=== PATIENT | male | born 1960 | race Caucasian/White ===

== ENCOUNTER 2017-09-02 00:26 | Observation (INO) | payer OTHER ==
[~2017-09-02] VITALS: Ht 172.7 cm; Wt 81.6 kg
[~2017-09-02 00:26] MED LIST: AMIODARONE200 MG PO; ASPIRIN EC81 M1 PO; AUGMENTIN 875875 MG PO; BRILINTA60 MG PO; BRILINTA90 M1 PO; BRILINTA90 MG PO; CARVEDILOL6.25 M1 PO; CRESTOR10 M1 PO; CRESTOR20 M1 PO; CRESTOR20 M2 PO; CRESTOR20 MG PO; DOXYCYCLINE HY100 M4 PO; ENTRESTO 24 MG1 EACH PO; LISINOPRIL2.5 MG PO; MEDROL4 M2 PO; METOPROLOL SUCC50 M1 PO; MOBIC15 M1 PO; PRINIVIL 5MG5 MG PO; SPIRONOLACTONE25 M1 PO; TORSEMIDE20 M1 PO; VENTOLIN HFA18 GM INH; ZITHROMAX500 M2 PO
--- NOTE | 2017-09-02 00:58 | ED CARDIAC/CP/PALPITATIONS ---
History of Present Illness General Chief Complaint: Chest Pain Stated Complaint: PT C/C CHEST THIGHTNESS CARDIAC HX Source: patient Exam Limitations: no limitations Vital Signs & Intake/Output Vital Signs & Intake/Output Vital Signs Date Time Temp Pulse Resp B/P B/P Pulse O2 O2 Flow FiO2 Mean Ox Delivery Rate 09/02 0408 57 91/53 09/02 0317 59 18 94/58 94 Nasal 2.0L Cannula 09/02 0257 59 18 92/53 95 Nasal 2.0L Cannula 09/02 0247 57 18 87/50 95 Nasal 2.0L Cannula 09/02 0240 61 18 80/49 94 Nasal 2.0L Cannula 09/02 0226 61 18 82/51 94 Nasal 2.0L Cannula 09/02 0201 65 18 83/49 93 Nasal 2.0L Cannula 09/02 0149 63 18 85/53 90 Room Air 09/02 0129 66 92/54 09/02 0048 66 18 98/65 98 Room Air Allergies Coded Allergies: ceftriaxone (From [facility]) (N/V 09/02/17) Reconcile Medications Aspirin (Ecotrin*) 81 MG TABLET.DR 1 TAB PO DAILY HEART/BLOOD (Reported) Carvedilol 6.25 MG TABLET 1 TAB PO BID HEART/BP (Reported) Doxycycline Hyclate 100 MG TABLET 1 TAB PO BID CELLULITIS Meloxicam (Mobic) 15 MG TABLET 1 TAB PO DAILY PAIN Rosuvastatin Calcium (Crestor) 20 MG TABLET 1 TAB PO DAILY CHOLESTEROL ( Reported) Sacubitril/Valsartan (Entresto 24 MG-26 MG Tablet) 24 MG-26 MG TABLET 1 TAB PO BID HEART (Reported) Spironolactone 25 MG TABLET 1 TAB PO DAILY DIURETIC (Reported) Ticagrelor (Brilinta) 90 MG TABLET 1 TAB PO BID HEART (Reported) Torsemide 20 MG TABLET 1 TAB PO DAILY DIURETIC (Reported) Triage Note: TRIAGE: PATIENT TO ER FROM HOME REPORTING "CHEST TIGHTNESS X 2-3 HOURS, NOT PAIN, JUST TIGHT." PATIENT HX MULTIPLE DE W/ BYPASS/STENTS AND A DEFIBRILATOR PLACED 1 YEAR AGO. +SOB, NO COUGH. REPORTS HX CHF, "FEELS LIKE IN CHF RIGHT NOW." LUNGS CTA, NO ACUTE RESP DISTRESS. SPEECH CLEAR. EKG COMPLETED. REPORTS "I GET ANXIOUS ABOUT MY HEART." MD VASQUEZ EVALUATING PATIENT IN WHITING. Triage Nurses Notes Reviewed? yes Onset: Abrupt Duration: hour(s): Timing: recent history Location: central Radiation: right shoulder Activities at Onset: none Prior Chest Pain/Card Workup: heart attack Aspirin Today: 81 mg x 1, provided at home Associated Symptoms: dizziness HPI: 57 yo gentleman prior DE, cabg, pacer/defibrillator, presents with 3 hours of sub sternal chest "tightness", occasional radiation to right shoulder, and sensation of dizziness, "like I might pass out." He notes slight shortness of breath, no lower extremity edema, cough, phlegm, fever, chills. He is otherwise well. Past History Travel History Traveled to [place] past 21 day No Medical History Any Pertinent Medical History? see below for history Neurological: NONE EENT: NONE Cardiovascular: CHF, hyperlipidemia, [place] MULTIPLE Respiratory: pulmonary embolism, hypersensitivity pneumonitis Gastrointestinal: colonic polyps Hepatic: NONE Renal: NONE Musculoskeletal: NONE Psychiatric: depression Endocrine: NONE Blood Disorders: PE Cancer(s): NONE CREDIT ASSOCIATE/Reproductive: NONE History of MRSA: No History of VRE: No History of CDIFF: No Surgical History Surgical History: CABG Psychosocial History Who do you live with Daughter Services at Home None What is your primary language Malay Tobacco Use: Refused to answer Family History Hx Contributory? No Review of Systems Review of Systems Constitutional: Reports: no symptoms. EENTM: Reports: no symptoms. Respiratory: Reports: no symptoms. Cardiovascular: Reports: no symptoms. GI: Reports: no symptoms. Genitourinary: Reports: no symptoms. Musculoskeletal: Reports: no symptoms. Skin: Reports: no symptoms. Neurological/Psychological: Reports: no symptoms. Hematologic/Endocrine: Reports: no symptoms. Immunologic/Allergic: Reports: no symptoms. All Other Systems: Reviewed and Negative Physical Exam Physical Exam General Appearance: well developed/nourished, mild distress Head: atraumatic, normal appearance Eyes: Bilateral: normal appearance. Ears, Nose, Throat: normal pharynx, normal ENT inspection Neck: normal inspection, supple, full range of motion Respiratory: normal breath sounds, chest non-tender, no respiratory distress, quiet respiration, lungs clear Cardiovascular: regular rate/rhythm Gastrointestinal: normal bowel sounds, soft, non-tender, no organomegaly Back: normal inspection, normal range of motion Extremities: normal inspection, normal capillary refill, normal range of motion, no edema Neurologic/Psych: no motor/sensory deficits, awake, alert, oriented x 3 Skin: intact, normal color, warm/dry Core Measures ACS in differential dx? No CVA/TIA Diagnosis No Sepsis Present: No Sepsis Focused Exam Completed? No Progress Differential Diagnosis: AMI, musculoskeletal pain, pulmonary embolism, unstable angina Plan of Care: Orders Procedure Date/time Status Nothing by Mouth 09/02 B Active Saline Lock 09/[address] in observation 09/02 408 Active Misc Message 09/02 408 Active ED Holding Orders 09/02 408 Active Vital Signs 09/02 408 Active Code Status 09/02 408 Active Add-on Test (ER Only) 09/028 Active PROLACTIN 09/02 102 Active TROPONIN LEVEL 09/02 29 Active PARTIAL THROMBOPLASTIN TIME 09/02 29 Complete PROTHROMBIN TIME 09/02 29 Complete LIPASE 09/02 29 Active HEPATIC FUNCTION PANEL 09/02 29 Active D-DIMER 09/02 29 Complete CBC WITHOUT DIFFERENTIAL 09/02 29 Complete BASIC METABOLIC PANEL 09/02 29 Active AMYLASE 09/02 29 Active EKG 09/02 26 Active Laboratory Tests 09/02/173: Anion Gap 12, Estimated GFR > 60, BUN/Creatinine Ratio 15.6, Glucose 114 H, Calcium 8.8, Total Bilirubin 0.8, Direct Bilirubin 0.3, AST 19, ALT 37, Alkaline Phosphatase 68, Troponin I 0.02, Total Protein 5.8 L, Albumin 3.6, Amylase 41, Lipase 72, Prolactin Pending, PT 11.5, INR 1.10, APTT 30, D-Dimer High Sensitivty < 200, CBC w Diff NO MAN DIFF REQ, RBC 5.88, MCV 89.9, MCH 30.4, RDW 13.1, MPV 7.9, Gran % 73.1, Lymphocytes % 18.4 L, Monocytes % 6.5, Eosinophils % 1.6, Basophils % 0.4, Absolute Granulocytes 5.8, Absolute Lymphocytes 1.5, Absolute Monocytes 0.5, Absolute Eosinophils 0.1, Absolute Basophils 0, PUBS MCHC 33.8 Diagnostic Imaging: Viewed by Me: Radiology Read. Discussed w/RAD: Radiology Read. Radiology Impression: PATIENT: WILLIETY Paul JR PRESENT AGE: 57 PATIENT ACCOUNT NO: [id number] : 56 LOCATION: [facility] ORDERING PHYSICIAN: Ramsey Vasquez MD SERVICE DATE: 09/02/17 EXAM TYPE: CAT - CT CERV SPINE WO IV CONTRAST; CT HEAD WO IV CONTRAST; CT MAXILLOFACIAL W/O CON EXAMINATION: NONCONTRAST HEAD CT NONCONTRAST MAXILLOFACIAL CT NONCONTRAST CERVICAL SPINE CT INDICATION INFORMATION: Head injury. Fall. Seizure. COMPARISON: None TECHNIQUE: Separate noncontrast CT examinations of the head, maxillofacial bones, and cervical spine were performed. Coronal and sagittal images were created for each examination at the technologist workstation. DLP: 1924 mGy-cm FINDINGS: Head: No evidence of acute intracranial hemorrhage. No extra-axial fluid collections are seen. Jimenez-white differentiation is maintained without evidence of acute territorial infarction. Ventricles are of normal size without evidence of hydrocephalus. No mass effect or midline shift. Mild periventricular and deep white matter hypoattenuation is consistent with small vessel ischemic change. The mastoid air cells are well aerated. No acute calvarial fractures are seen. Maxillofacial: No acute maxillofacial fractures are seen. The pterygoid plates are intact. The lamina papyracea are intact. The zygomatic arches are intact. The orbital rims are intact. Minimal opacification of the left maxillary sinus. The remaining paranasal sinuses are well aerated. The uncinate process is normal bilaterally. The infundibula and middle meati are patent. The nasal septum is mildly deviated to the left. The mandibular heads are well-seated in the condylar fossa. The orbits demonstrate a normal appearance bilaterally. The globes are intact, and there are no suspicious findings to suggest retrobulbar hemorrhage. Cervical spine: There is anterior cervical fusion hardware at C5-C6 with bony fusion of the vertebral bodies. There is anatomic alignment of the vertebral bodies and posterior elements. Vertebral body heights are maintained. There is disc space narrowing throughout the cervical spine with endplate osteophyte formation and facet arthropathy. The atlantoaxial and atlantooccipital articulations are intact. No evidence of acute fracture. No prevertebral soft tissue swelling. Groundglass opacities at the lung apices noted. The thyroid gland is unremarkable. IMPRESSION: 1. No acute intracranial findings. 2. No acute fracture or malalignment involving the cervical spine or maxillofacial bones. Degenerative changes of the spine. DICTATED BY: Ascencion Montes MD DATE/TIME DICTATED:09/02/17236 RESIDENTIAL TREATMENT COUNSELOR:CYNDI DATE/TIME TRANSCRIBED:236 CONFIDENTIAL, DO NOT COPY WITHOUT APPROPRIATE AUTHORIZATION. < Electronically signed in Other Vendor System> SIGNED BY: Ascencion Montes MD 09/02/17 0245 CXR Impression: PATIENT: TY TAPIA JR PRESENT AGE : 57 PATIENT ACCOUNT NO: [id number] : 56 LOCATION: [facility] ORDERING PHYSICIAN: Ramsey Vasquez MD SERVICE DATE: 09/02/17 EXAM TYPE: RAD - XRY-PORTABLE CHEST XRAY EXAMINATION: XR PORTABLE CHEST CLINICAL INFORMATION: Chest pain COMPARISON: 07/20/2017 TECHNIQUE: Portable frontal view of the chest was obtained. FINDINGS: Cervical fusion hardware partially visualized. Median sternotomy wires appear intact. Generator overlies the left chest wall with wiring overlying the left paraspinal region. The lungs are well expanded. There is no focal consolidation, edema, or effusion. No pneumothorax. The cardiomediastinal silhouette is unchanged. No acute osseous abnormality. IMPRESSION: No acute pulmonary findings. DICTATED BY: Ascencion Montes MD DATE /TIME DICTATED:09/02/17235 RESIDENTIAL TREATMENT COUNSELOR:CYNDI DATE/TIME TRANSCRIBED: 09/02/17235 CONFIDENTIAL, DO NOT COPY WITHOUT APPROPRIATE AUTHORIZATION. < Electronically signed in Other Vendor System> SIGNED BY: Ascencion Montes MD 09/02/17 0241 Initial ED EKG: LBBB, no change from prior Departure Departure Disposition: STILL A PATIENT Condition: Stable Clinical Impression Primary Impression: Unstable angina Secondary Impressions: Seizure Referrals: Dimas Severino MD (PCP/Family) Departure Forms: Customer Survey General Discharge Information Comments 09/02/17, 1:35AM... Pt had seizure-like episode, lasted <1 minute, +loss of consciousness, w/ loss of bladder. Pt hit head on bridge of nose, +nose bleed. pt confused afterward but easily aroused. 09/02/17, 1:52am... pt is chest pain free... sbp<90... IV fluids running Observation Note Spoke With: Dimas Severino MD Physician Advisor Notified: SHANEL MACK DO Place Patient In: Non-ED OBS Care Area Rationale for Observation: My rational for observation is as follows . pt had chest pain, responsive to nitro, most consistent with unstable angina. pt also had brief seizure episode, self resolved, with negative ct scans.... ? nitro related, ?dysrhythmia.... pt merits telemonitoring, serial trops/ekg. Discussed with tesfaye rodas (covering for sundeep mendoza) who concurs. Cards will consult this AM. Would consider neuro consult as well. Critical Care Note Critical Care Note Critical Care Time: 30-74 min
[2017-09-02 01:19] LABS: ABSOLUTE BASOPHIL COUNT 0 /CUMM (0.0-0.2); ABSOLUTE EOSINOPHIL COUNT 0.1 /CUMM (0.0-0.7); ABSOLUTE GRANULOCYTE CT 5.8 /CUMM (1.4-6.5); ABSOLUTE LYMPH COUNT 1.5 /CUMM (1.2-3.4); ABSOLUTE MONOCYTE COUNT 0.5 /CUMM (0.10-0.60); BASOPHIL % 0.4 % (0.0-2.0); EOSINOPHIL % 1.6 % (0-5); GRANULOCYTE % 73.1 % (42.2-75.2); HEMATOCRIT 52.9 % (42-52); MEAN CORPUSCULAR HGB 30.4 PG (27.0-31.0); MEAN CORPUSCULAR HGB CONC 33.8 G/DL (33.0-37.0); MEAN CORPUSCULAR VOLUME 89.9 FL (80.0-94.0); MEAN PLATELET VOLUME 7.9 FL (7.4-10.4); PLATELET COUNT 186 /CUMM (130-400); RBC DISTRIBUTION WIDTH 13.1 % (11.5-14.5); RED BLOOD CELL CT 5.88 /CUMM (4.70-6.10); WHITE BLOOD CELL COUNT 7.9 /CUMM (4.8-10.8)
[2017-09-02 01:22] LABS: PT 11.5 SEC (9.4-12.5); PTT 30 SEC (25-37)
--- NOTE | 2017-09-02 02:41 | RADIOLOGY REPORT ---
EXAMINATION: XR PORTABLE CHEST CLINICAL INFORMATION: Chest pain COMPARISON: 07/20/2017 TECHNIQUE: Portable frontal view of the chest was obtained. FINDINGS: Cervical fusion hardware partially visualized. Median sternotomy wires appear intact. Generator overlies the left chest wall with wiring overlying the left paraspinal region. The lungs are well expanded. There is no focal consolidation, edema, or effusion. No pneumothorax. The cardiomediastinal silhouette is unchanged. No acute osseous abnormality. IMPRESSION: No acute pulmonary findings.
--- NOTE | 2017-09-02 02:45 | CT SCAN REPORT ---
EXAMINATION: NONCONTRAST HEAD CT NONCONTRAST MAXILLOFACIAL CT NONCONTRAST CERVICAL SPINE CT INDICATION INFORMATION: Head injury. Fall. Seizure. COMPARISON: None TECHNIQUE: Separate noncontrast CT examinations of the head, maxillofacial bones, and cervical spine were performed. Coronal and sagittal images were created for each examination at the technologist workstation. DLP: 1924 mGy-cm FINDINGS: Head: No evidence of acute intracranial hemorrhage. No extra-axial fluid collections are seen. Jimenez-white differentiation is maintained without evidence of acute territorial infarction. Ventricles are of normal size without evidence of hydrocephalus. No mass effect or midline shift. Mild periventricular and deep white matter hypoattenuation is consistent with small vessel ischemic change. The mastoid air cells are well aerated. No acute calvarial fractures are seen. Maxillofacial: No acute maxillofacial fractures are seen. The pterygoid plates are intact. The lamina papyracea are intact. The zygomatic arches are intact. The orbital rims are intact. Minimal opacification of the left maxillary sinus. The remaining paranasal sinuses are well aerated. The uncinate process is normal bilaterally. The infundibula and middle meati are patent. The nasal septum is mildly deviated to the left. The mandibular heads are well-seated in the condylar fossa. The orbits demonstrate a normal appearance bilaterally. The globes are intact, and there are no suspicious findings to suggest retrobulbar hemorrhage. Cervical spine: There is anterior cervical fusion hardware at C5-C6 with bony fusion of the vertebral bodies. There is anatomic alignment of the vertebral bodies and posterior elements. Vertebral body heights are maintained. There is disc space narrowing throughout the cervical spine with endplate osteophyte formation and facet arthropathy. The atlantoaxial and atlantooccipital articulations are intact. No evidence of acute fracture. No prevertebral soft tissue swelling. Groundglass opacities at the lung apices noted. The thyroid gland is unremarkable. IMPRESSION: 1. No acute intracranial findings. 2. No acute fracture or malalignment involving the cervical spine or maxillofacial bones. Degenerative changes of the spine.
--- NOTE | 2017-09-02 06:00 | History & Physical ---
General Information and HPI Allergies/Medications Allergies: Coded Allergies: ceftriaxone (From [facility]) (N/V 09/02/17) Home Med list Aspirin (Ecotrin*) 81 MG TABLET.DR 1 TAB PO DAILY HEART/BLOOD (Reported) Carvedilol 6.25 MG TABLET 1 TAB PO BID HEART/BP (Reported) Doxycycline Hyclate 100 MG TABLET 1 TAB PO BID CELLULITIS Meloxicam (Mobic) 15 MG TABLET 1 TAB PO DAILY PAIN Rosuvastatin Calcium (Crestor) 20 MG TABLET 1 TAB PO DAILY CHOLESTEROL ( Reported) Sacubitril/Valsartan (Entresto 24 MG-26 MG Tablet) 24 MG-26 MG TABLET 1 TAB PO BID HEART (Reported) Spironolactone 25 MG TABLET 1 TAB PO DAILY DIURETIC (Reported) Ticagrelor (Brilinta) 90 MG TABLET 1 TAB PO BID HEART (Reported) Torsemide 20 MG TABLET 1 TAB PO DAILY DIURETIC (Reported) Past History Travel History Traveled to [place] past 21 day No Medical History Neurological: NONE EENT: NONE Cardiovascular: CHF, hyperlipidemia, [place] MULTIPLE Respiratory: pulmonary embolism, hypersensitivity pneumonitis Gastrointestinal: colonic polyps Hepatic: NONE Renal: NONE Musculoskeletal: NONE Psychiatric: depression Endocrine: NONE Blood Disorders: PE Cancer(s): NONE 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 Core Measures/Misc (05/03) Cerebrovascular Accident CVA/TIA Diagnosis: No
[2017-09-02 07:05] VITALS: BP 96/58
--- NOTE | 2017-09-02 07:27 | History & Physical ---
General Information and HPI MD Statement: I have seen and personally examined TY TAPIA and documented this H&P. The patient is a 57 year old M who presented with a patient stated chief complaint of chest tightness. Source of Information: patient, family Exam Limitations: no limitations History of Present Illness: This is a very pleasant 57-year-old gentleman with an extensive cardiac past medical history of 2 MIs (first one 8 years ago), status post LAD bare metal stent placement and CABG (last one in May 2016), Ischemic cardiomyopathy withh depresed EF s/p AICD placement, provoked pe 5yrs ago, presents with complaint of 3hour onset of chest tightness. Patient reports that yesterday during evening time while seated and watching TV, he experienced substernal chest tightness accompanied by mild shortness of breath. He denies any chest pain, radiation to jaw arms, palpitation or diaphoresis. He reports that his head similar episodes before about 1-1/2 year ago which resulted in an WA. Patient then decided to drive himself to the ED for evaluation. Patient denies any cough, fever/chills, recent URI, chest trauma or illicit drug use. ED reports indicated that he did receive nitroglycerin in addition to aspirin, which patient reports gave him relief from his chest tightness. When seen today early in the morning,he was chest pain free. 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 His last echo was about 1 year ago which weas remarkable for significanty depressed EF (pt does not remember the number). Only he does not endorse any recent weight gain, increased orthopnea, or worsening dyspnea, he is on spirinolactone and torsemide on a daily basis. Overnight event reported by the ED staff reports that patient had a syncopal episode of about 30 seconds. A thud was heard by nursing staff who immediateltwalked into the room and found the patient on the flow with loss of consciousness and possible urinary incontinence. Patient regained consciousness within 30 seconds, there was no tremors noted, however there was reported mild post ictal confusion. Patient reports that he try to get up and felt dizzy and then the next thing he remembers he was on the floor. Allergies/Medications Allergies: Coded Allergies: ceftriaxone (From [facility]) (N/V 09/02/17) Home Med list Aspirin (Ecotrin*) 81 MG TABLET.DR 1 TAB PO DAILY HEART/BLOOD (Reported) Carvedilol 6.25 MG TABLET 1 TAB PO BID HEART/BP (Reported) Doxycycline Hyclate 100 MG TABLET 1 TAB PO BID CELLULITIS Meloxicam (Mobic) 15 MG TABLET 1 TAB PO DAILY PAIN Rosuvastatin Calcium (Crestor) 20 MG TABLET 1 TAB PO DAILY CHOLESTEROL ( Reported) Sacubitril/Valsartan (Entresto 24 MG-26 MG Tablet) 24 MG-26 MG TABLET 1 TAB PO BID HEART (Reported) Spironolactone 25 MG TABLET 1 TAB PO DAILY DIURETIC (Reported) Ticagrelor (Brilinta) 90 MG TABLET 1 TAB PO BID HEART (Reported) Torsemide 20 MG TABLET 1 TAB PO DAILY DIURETIC (Reported) Past History Travel History Traveled to [place] past 21 day No Medical History Neurological: NONE EENT: NONE Cardiovascular: CHF, hyperlipidemia, [place] MULTIPLE Respiratory: pulmonary embolism, hypersensitivity pneumonitis Gastrointestinal: colonic polyps Hepatic: NONE Renal: NONE Musculoskeletal: NONE Psychiatric: depression Endocrine: NONE Blood Disorders: PE Cancer(s): NONE 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 Review of Systems Review of Systems Constitutional: Denies: chills, diaphoresis, unexplained weight loss. EENTM: Reports: no symptoms. Cardiovascular: Reports: see HPI. Respiratory: Reports: short of breath. GI: Reports: no symptoms. Genitourinary: Reports: see HPI. Musculoskeletal: Denies: back pain, gout, joint pain, muscle pain. Skin: Reports: no symptoms. Neurological/Psychological: Reports: no symptoms. Hematologic/Endocrine: Reports: no symptoms. Immunologic/Allergic: Reports: no symptoms. Exam & Diagnostic Data Last 24 Hrs of Vital Signs/I&O Vital Signs Date Time Temp Pulse Resp B/P B/P Pulse O2 O2 Flow FiO2 Mean Ox Delivery Rate 09/02 0917 68 98/58 09/02 0705 97.5 63 18 96/58 95 09/02 0630 Nasal 2.0L Cannula 09/02 0551 95.6 75 20 91/50 97 Nasal 2.0L Cannula 09/02 0428 67 18 92/54 95 Nasal 2.0L Cannula 09/02 0408 57 91/53 09/02 0400 95 Nasal 2.0L Cannula 09/02 0317 59 18 94/58 94 Nasal 2.0L Cannula 09/02 0257 59 18 92/53 95 Nasal 2.0L Cannula 09/02 0247 57 18 87/50 95 Nasal 2.0L Cannula 09/02 0240 61 18 80/49 94 Nasal 2.0L Cannula 09/02 0226 61 18 82/51 94 Nasal 2.0L Cannula 09/02 0201 65 18 83/49 93 Nasal 2.0L Cannula 09/02 0149 63 18 85/53 90 Room Air 09/02 0129 66 92/54 09/02 0048 66 18 98/65 98 Room Air Intake & Output 09/02 1600 09/02 0800 09/02 0000 Intake Total 2000 Output Total Balance 2000 Intake, IV 2000 Patient 81.647 kg Weight Weight Reported by Patient Measurement Method Physical Exam General Appearance Alert, Oriented X3, Cooperative Skin midline incission scar on chest noted.intact sterile strips noted on nasal areas from mild skin tears Skin Temp/Moisture Exam: Warm/Dry Sepsis Skin Exam (color): Normal for Ethnicity HEENT Mucous Membr. moist/pink, facial mikld skin tears noted Neck Supple, No JVD Lymphatic Cervical nl Cardiovascular Regular Rate, Normal S1, Normal S2, No Murmurs Lungs Clear to Auscultation, Normal Air Movement Abdomen Normal Bowel Sounds, Soft, No Tenderness Neurological Normal Gait, Normal Speech, Strength at 5/5 X4 Ext, Normal Tone, Sensation Intact, Cranial Nerves 3-12 NL, Reflexes 2+ Extremities No Edema, Normal Pulses, No Tenderness/Swelling Vascular Normal Pulses, Pulses Symmetrical Assessment/Plan Assessment: This is a 57-year-old gentleman with signficant CAD hx of 2 MIs requiring stent placement and CABG present with atypical chest pain. Impression * Chest tightness. The acute onset of chest discomfort at rest and possible relief by nitroglycerin, is concerning for unstable angina or stent stenosis, especially in the context of high risk patient with previous MIs and stent placement. However his trended troponins are negative 2, even though does however have diffuse T-wave inversion in inferior and anterolateral leads which is not an uncommon in patients with Multi vessel disease. The lack of chest pain or radiating features or diaphoresis, negative trops is more convincing of "atypical chest pain" rather than typical anginal pain. Anxiety can be considered as possible cause as patient is endorsing a not yet diagnosed hx of possible anxiety or panic attack (?). * Syncope. Most likely 2/2 the NTG given patuient felt dizziness when changing from a laying to a standing position right before syncopizing. * Possible seizure activity? Mild Postictal confusion and urinary incontinence is concerning for possible seizure activity. However there was no tremor/seizure activity notes. Given the patient account of feeling dizzy when attempting to stand up and having been given NTG prior to the episode, most likely patient had a syncopal episode from a medication effect rather than actual seizure activity. * Hx of CAD * Hx of Ischemic cardiomyopathy Plan Placed on Tele observation for close cardiac monitoring Keep nothing by mouth for now Initial troponins x2 unremarkable, repeated one more time Continue DAPT, carvedilol and enteresto Cardiology consult interrogation of AICD consider Neuro consult? Patient will benefit from outpatient pharmacological stresss test DVT PPX: ALPS and code:FC As Ranked By This Provider Problem List: 1. Chest tightness 2. Syncopal episodes Core Measures/Misc (05/03) Acute Coronary Syndrome ACS Diagnosis: No Congestive Heart Failure Congestive Heart Failure Diagnosis No Cerebrovascular Accident CVA/TIA Diagnosis: No VTE (View Protocol) VTE Risk Factors Acute Medical Illness No Mechanical VTE Prophylaxis d/t N/A MechProphylax Ordered No VTE Pharm Prophylaxis d/t NA PharmProphylax ordered Sepsis (View protocol) Sepsis Present: No
--- NOTE | 2017-09-02 12:59 | PN- Att Addend ---
Attending Addendum Attending Brief Note 57-year-old white male with a positive cardiac history follows closely with cardiology. Comes in because he had some chest tightness. No shortness of breath no diaphoresis noted in the ER at the beginning of workup, might have had a presyncopal or syncopal episode patient had an unwitnessed fall and he scratched his nose. Patient had a CAT scan of the head in the cervical spine which showed no acute abnormalities. His troponin so far have been negative patient was kept in observation with Dr. Acevedo to evaluate the patient. Current Medications Sig/Andrew Start time Last Medication Dose Route Stop Time Status Admin Aspirin 0 .STK-MED ONE 09/02 0112 DC PO Aspirin 325 MG ONCE ONE 09/02 0100 DC 09/02 PO 09/02 0101 0110 Aspirin Buffered 81 MG DAILY 09/02 1000 AC 09/02 PO 0916 Atorvastatin Calcium 80 MG 1700 09/02 1700 AC PO Carvedilol 6.25 MG BID 09/02 1000 AC 09/02 PO 0917 Enoxaparin Sodium 40 MG DAILY 09/02 1000 AC SC Lorazepam 0 .STK-MED ONE 09/02 0136 DC .ROUTE Lorazepam 1 MG STAT STA 09/02 0134 DC 09/02 IV 09/02 0135 0138 Nitroglycerin 0 .STK-MED ONE 09/02 0112 DC SL Nitroglycerin 0.4 MG ONCE ONE 09/02 0100 DC 09/02 SL 09/02 0101 0110 Sacubitril/Valsartan 1 TAB BID 09/02 1100 AC PO Sodium Chloride 1,000 ML BOLUS ONE 09/02 0230 DC 09/02 IV 09/02 0329 0243 Sodium Chloride 1,000 ML BOLUS ONE 09/02 0200 DC 09/02 IV 09/02 0259 0135 Ticagrelor 90 MG BID 09/02 1000 AC 09/02 PO 0917 Laboratory Tests 09/02/17 1244: Troponin I Pending 09/02/17 0604: Troponin I 0.02 09/02/17 0103: Anion Gap 12, Estimated GFR > 60, BUN/Creatinine Ratio 15.6, Glucose 114 H, Calcium 8.8, Total Bilirubin 0.8, Direct Bilirubin 0.3, AST 19, ALT 37, Alkaline Phosphatase 68, Troponin I 0.02, Lgc-Q-Wkeiebcabes Pept 442 H, Total Protein 5.8 L, Albumin 3.6, Amylase 41, Lipase 72, Prolactin 12.8, PT 11.5, INR 1.10, APTT 30, D-Dimer High Sensitivty < 200, CBC w Diff NO MAN DIFF REQ, RBC 5.88, MCV 89.9, MCH 30.4, RDW 13.1, MPV 7.9, Gran % 73.1, Lymphocytes % 18.4 L, Monocytes % 6.5, Eosinophils % 1.6, Basophils % 0.4, Absolute Granulocytes 5.8, Absolute Lymphocytes 1.5, Absolute Monocytes 0.5, Absolute Eosinophils 0.1, Absolute Basophils 0, PUBS MCHC 33.8 Vital Signs Date Time Temp Pulse Resp B/P B/P Pulse O2 O2 Flow FiO2 Mean Ox Delivery Rate 09/02 0917 68 98/58 09/02 0705 97.5 63 18 96/58 95 09/02 0630 Nasal 2.0L Cannula 09/02 0551 95.6 75 20 91/50 97 Nasal 2.0L Cannula
[2017-09-02 14:29] VITALS: BP 90/60
--- NOTE | 2017-09-02 15:33 | Cons- Cardiology ---
General Information and HPI Consulting Request Date of Consult: 09/02/17 Requested By: Dimas Severino MD Reason for Consult: Chest pain ; syncope Source of Information: patient, old records Exam Limitations: no limitations History of Present Illness: The patient is a 57 year old male well known to me with a history of ischemic cardiomyopathy, CABG, AICD, who is followed at [place] [facility] [place] [facility]F centers. He is usually quite stable and very active. He is admitted via the ER after symptoms of atypical chest tightness and dyspnea. Ultimately received TNG SL and subsequently had a syncopal episode when rising from the stretcher in the ER. THEre were no reported arrhythmias. Patient feels fine at present. Allergies/Medications Allergies: Coded Allergies: ceftriaxone (From ROCEPHIN) (N/V 09/02/17) Home Med List: Aspirin (Ecotrin*) 81 MG TABLET.DR 1 TAB PO DAILY HEART/BLOOD (Reported) Carvedilol 6.25 MG TABLET 1 TAB PO BID HEART/BP (Reported) Doxycycline Hyclate 100 MG TABLET 1 TAB PO BID CELLULITIS Meloxicam (Mobic) 15 MG TABLET 1 TAB PO DAILY PAIN Rosuvastatin Calcium (Crestor) 20 MG TABLET 1 TAB PO DAILY CHOLESTEROL ( Reported) Sacubitril/Valsartan (Entresto 24 MG-26 MG Tablet) 24 MG-26 MG TABLET 1 TAB PO BID HEART (Reported) Spironolactone 25 MG TABLET 1 TAB PO DAILY DIURETIC (Reported) Ticagrelor (Brilinta) 90 MG TABLET 1 TAB PO BID HEART (Reported) Torsemide 20 MG TABLET 1 TAB PO DAILY DIURETIC (Reported) Current Medications: Current Medications Sig/Andrew Start time Last Medication Dose Route Stop Time Status Admin Aspirin 0 .STK-MED ONE 09/02 0112 DC PO Aspirin 325 MG ONCE ONE 09/02 0100 DC 09/02 PO 09/02 0101 0110 Aspirin Buffered 81 MG DAILY 09/02 1000 AC 09/02 PO 0916 Atorvastatin Calcium 80 MG 1700 09/02 1700 AC PO Carvedilol 6.25 MG BID 09/02 1000 AC 09/02 PO 0917 Enoxaparin Sodium 40 MG DAILY 09/02 1000 AC 09/02 SC 1329 Lorazepam 0 .STK-MED ONE 09/02 0136 DC .ROUTE Lorazepam 1 MG STAT STA 09/02 0134 DC 09/02 IV 09/02 0135 0138 Nitroglycerin 0 .STK-MED ONE 09/02 0112 DC SL Nitroglycerin 0.4 MG ONCE ONE 09/02 0100 DC 09/02 SL 09/02 0101 0110 Sacubitril/Valsartan 1 TAB BID 09/02 1100 AC 09/02 PO 1329 Sodium Chloride 1,000 ML BOLUS ONE 09/02 0230 DC 09/02 IV 09/02 0329 0243 Sodium Chloride 1,000 ML BOLUS ONE 09/02 0200 DC 09/02 IV 09/02 0259 0135 Ticagrelor 90 MG BID 09/02 1000 AC 09/02 PO 0917 Past History Travel History Traveled to [place] past 21 day No Medical History Neurological: NONE EENT: NONE Cardiovascular: CHF, hyperlipidemia, [place] MULTIPLE Respiratory: pulmonary embolism, hypersensitivity pneumonitis Gastrointestinal: colonic polyps Hepatic: NONE Renal: NONE Musculoskeletal: NONE Psychiatric: depression Endocrine: NONE Blood Disorders: PE Cancer(s): NONE 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 Exam & Diagnostic Data Vital Signs and I&O Vital Signs Date Time Temp Pulse Resp B/P B/P Pulse O2 O2 Flow FiO2 Mean Ox Delivery Rate 09/02 1429 98.0 64 20 90/60 94 Room Air 09/02 0917 68 98/58 09/02 0705 97.5 63 18 96/58 95 09/02 0630 Nasal 2.0L Cannula 09/02 0551 95.6 75 20 91/50 97 Nasal 2.0L Cannula 09/02 0428 67 18 92/54 95 Nasal 2.0L Cannula 09/02 0408 57 91/53 09/02 0400 95 Nasal 2.0L Cannula 09/02 0317 59 18 94/58 94 Nasal 2.0L Cannula 09/02 0257 59 18 92/53 95 Nasal 2.0L Cannula 09/02 0247 57 18 87/50 95 Nasal 2.0L Cannula 09/02 0240 61 18 80/49 94 Nasal 2.0L Cannula 09/02 0226 61 18 82/51 94 Nasal 2.0L Cannula 09/02 0201 65 18 83/49 93 Nasal 2.0L Cannula 09/02 0149 63 18 85/53 90 Room Air 09/02 0129 66 92/54 09/02 0048 66 18 98/65 98 Room Air Intake & Output 09/02 1600 09/02 0800 09/02 0000 09/01 1600 09/01 0800 09/01 0000 Intake Total 520 2000 Output Total 400 Balance 120 2000 Intake, IV 20 2000 Intake, Oral 500 Number 1 Bowel Movements Output, Urine 400 Patient 180 lb Weight Weight Reported by Patient Measurement Method Physical Exam: General Appearance Alert, Oriented X3, Cooperative Skin midline incission scar on chest noted.intact sterile strips noted on nasal areas from mild skin tears HEENT Mucous Membr. moist/pink, facial mikld skin tears noted Neck Supple, No JVD Cardiovascular Regular Rate, Normal S1, Normal S2, No Murmurs Lungs Clear to Auscultation, Normal Air Movement Abdomen Normal Bowel Sounds, Soft, No Tenderness Neurological Normal Gait, Normal Speech, Strength at 5/5 X4 Ext, Normal Tone, Sensation Intact, Cranial Nerves 3-12 NL, Reflexes 2+ Extremities No Edema, Normal Pulses, No Tenderness/Swelling Vascular Normal Pulses, Pulses Symmetrical Labs/Marcel Results: Laboratory Tests 09/02 09/02 09/02 1244 0604 0103 Chemistry Sodium (137 - 145 mmol/L) 139 Potassium (3.5 - 5.1 mmol/L) 4.0 Chloride (98 - 107 mmol/L) 102 Carbon Dioxide (22 - 30 mmol/L) 24 Anion Gap (5 - 16) 12 BUN (9 - 20 mg/dL) 14 Creatinine (0.7 - 1.2 mg/dL) 0.9 Estimated GFR (>60 ml/min) > 60 BUN/Creatinine Ratio (7 - 25 %) 15.6 Glucose (65 - 99 mg/dL) 114 H Calcium (8.4 - 10.2 mg/dL) 8.8 Total Bilirubin (0.2 - 1.3 mg/dL) 0.8 Direct Bilirubin (< 0.4 mg/dL) 0.3 AST (17 - 59 U/L) 19 ALT (21 - 72 U/L) 37 Alkaline Phosphatase (< 127 U/L) 68 Troponin I (<0.11 ng/ml) < 0.01 0.02 0.02 Agh-C-Jmxmbngojgr Pept (<125 pg/mL) 442 H Total Protein (6.3 - 8.2 g/dL) 5.8 L Albumin (3.5 - 5.0 g/dL) 3.6 Amylase (30 - 110 U/L) 41 Lipase (23 - 300 U/L) 72 Prolactin (3.7 - 17.9 ng/mL) 12.8 Coagulation PT (9.4 - 12.5 SEC) 11.5 INR (0.90 - 1.17) 1.10 APTT (25 - 37 SEC) 30 D-Dimer High Sensitivty (0 - 243 ng/ml) < 200 Hematology CBC w Diff NO MAN DIFF REQ WBC (4.8 - 10.8 /CUMM) 7.9 RBC (4.70 - 6.10 /CUMM) 5.88 Hgb (14.0 - 18.0 G/DL) 17.9 Hct (42 - 52 %) 52.9 H MCV (80.0 - 94.0 FL) 89.9 MCH (27.0 - 31.0 PG) 30.4 RDW (11.5 - 14.5 %) 13.1 Plt Count (130 - 400 /CUMM) 186 MPV (7.4 - 10.4 FL) 7.9 Gran % (42.2 - 75.2 %) 73.1 Lymphocytes % (20.5 - 51.1 %) 18.4 L Monocytes % (1.7 - 9.3 %) 6.5 Eosinophils % (0 - 5 %) 1.6 Basophils % (0.0 - 2.0 %) 0.4 Absolute Granulocytes (1.4 - 6.5 /CUMM) 5.8 Absolute Lymphocytes (1.2 - 3.4 /CUMM) 1.5 Absolute Monocytes (0.10 - 0.60 /CUMM) 0.5 Absolute Eosinophils (0.0 - 0.7 /CUMM) 0.1 Absolute Basophils (0.0 - 0.2 /CUMM) 0 PUBS MCHC (33.0 - 37.0 G/DL) 33.8 Diagnostic Data CXR Results FINDINGS: Cervical fusion hardware partially visualized. Median sternotomy wires appear intact. Generator overlies the left chest wall with wiring overlying the left paraspinal region. The lungs are well expanded. There is no focal consolidation, edema, or effusion. No pneumothorax. The cardiomediastinal silhouette is unchanged. No acute osseous abnormality. IMPRESSION: No acute pulmonary findings. Assessment/Plan Assessment/Plan Assessment: 1. Chest pain syndrome 2. Syncope 3. History of CAD with ischemic cardiomyopathy 4. AICD Recommendations: - Monitor on telemetry - AICD interrogation arranged with Dr. Bailey - Echo pending. - Continue all regular medication including entresto. Consult Acknowledgment - Thank you for your consult request.
[2017-09-02 22:15] VITALS: BP 82/58
[2017-09-03 06:22] VITALS: BP 88/64
--- NOTE | 2017-09-03 06:54 | Cons- Neurology ---
General Information and HPI Consulting Request Date of Consult: 09/03/17 Requested By: Dimas Severino MD Reason for Consult: seizure? Source of Information: patient, EMR History of Present Illness: 57-year-old man with ischemic and possibly viral cardiomyopathy, last EF 18% according to him, followed at [facility], on heart transplant list, states he drove himself to the ED yesterday because of chest pain. While he was in the ED and after receiving nitroglycerin, he stood up and subsequently passed out, landed face first. He reportedly regained consciousness within 30 seconds. He does not recall that epoch of time but has otherwise felt well. There is no mention of convulsive activity in the records. There was no tongue biting or incontinence. There is no prior history of syncope or seizure. Baseline blood pressures tend to run low. He currently feels well. No chest pain or shortness of breath. No headache or dizziness. No visual changes. No gait difficulties. No family history of neurologic disease His younger brother had a myocardial infarct in the past Allergies/Medications Allergies: Coded Allergies: ceftriaxone (From ROCEPHIN) (N/V 09/02/17) Home Med List: Aspirin (Ecotrin*) 81 MG TABLET.DR 1 TAB PO DAILY HEART/BLOOD (Reported) Carvedilol 6.25 MG TABLET 1 TAB PO BID HEART/BP (Reported) Doxycycline Hyclate 100 MG TABLET 1 TAB PO BID CELLULITIS Meloxicam (Mobic) 15 MG TABLET 1 TAB PO DAILY PAIN Rosuvastatin Calcium (Crestor) 20 MG TABLET 1 TAB PO DAILY CHOLESTEROL ( Reported) Sacubitril/Valsartan (Entresto 24 MG-26 MG Tablet) 24 MG-26 MG TABLET 1 TAB PO BID HEART (Reported) Spironolactone 25 MG TABLET 1 TAB PO DAILY DIURETIC (Reported) Ticagrelor (Brilinta) 90 MG TABLET 1 TAB PO BID HEART (Reported) Torsemide 20 MG TABLET 1 TAB PO DAILY DIURETIC (Reported) Current Medications: Current Medications Sig/Andrew Start time Last Medication Dose Route Stop Time Status Admin Aspirin Buffered 81 MG DAILY 09/02 1000 AC 09/02 PO 0916 Atorvastatin Calcium 80 MG 1700 09/02 1700 AC PO Carvedilol 6.25 MG BID 09/02 1000 AC 09/02 PO 09 Enoxaparin Sodium 40 MG DAILY 09/02 1000 AC 09/02 [place] 1329 Sacubitril/Valsartan 1 TAB BID 09/02 1100 AC 09/02 PO 2022 Ticagrelor 90 MG BID 09/02 1000 AC 09/02 PO 2022 Review of Systems Review of Systems: REVIEW OF SYSTEMS: (-) = negative / normal blank = not discussed Neurologic: see HPI Eyes: (-) ENT: Nasal abrasion/contusion due to the syncopal episode with fall. 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 Exam & Diagnostic Data Vital Signs and I&O Vital Signs Date Time Temp Pulse Resp B/P B/P Pulse O2 O2 Flow FiO2 Mean Ox Delivery Rate 09/03 0622 98.3 66 20 88/64 95 Room Air 09/02 2215 98.4 85 20 82/58 94 Room Air 09/02 2040 81 84/60 09/02 1429 98.0 64 20 90/60 94 Room Air 09/02 0917 68 98/58 09/02 0705 97.5 63 18 96/58 95 Intake & Output 09/03 0800 09/03 0000 09/02 1600 Intake Total 360 360 520 Output Total 400 Balance 360 360 120 Intake, IV 20 Intake, Oral 360 360 500 Number 1 Bowel Movements Output, Urine 400 Physical Exam: PHYSICAL EXAMINATION: nl = normal NT or blank = not tested GENERAL Appearance: nl Head: nl Eyes: nl ENT: Nose bandaged Neck: nl Carotids: nl Lungs: nl Heart: nl Extremities: nl Spine: nl NEUROLOGIC MENTAL STATUS Level of consciousness: nl Orientation: nl Attention / Concentration: nl Memory: nl Fund of Knowledge: nl Speech / Language: nl NEUROLOGIC CRANIAL NERVES I: Olfaction: NT II: Optic nerves: nl Visual raygoza: nl III: Pupils: nl Levator palpebrae: nl III, IV, : Ocular alignment: nl Extraocular motility: nl Pursuits/ saccades: nl V: Facial sensation: nl Masseter/Pterygoids: nl VII: Facial Motor: nl VIII: Hearing (finger rub): nl IX, X: Uvula and palate: nl XI: SCM, Upper trap.: nl XII: Tongue: nl MOTOR / NEUROMUSCULAR Bulk: nl Tone: nl Strength: nl Rapid alternating movements: nl Fine motor movements: nl Abnormal / involuntary movements: none CEREBELLAR / COORDINATION: intact SENSATION: intact to light touch DTR's symmetrically trace to 1+ PLANTARS: flexor GAIT: Not tested Last 48 Hours of Lab Results: Laboratory Tests 09/02 09/02 09/02 1244 0604 0103 Chemistry Sodium (137 - 145 mmol/L) 139 Potassium (3.5 - 5.1 mmol/L) 4.0 Chloride (98 - 107 mmol/L) 102 Carbon Dioxide (22 - 30 mmol/L) 24 Anion Gap (5 - 16) 12 BUN (9 - 20 mg/dL) 14 Creatinine (0.7 - 1.2 mg/dL) 0.9 Estimated GFR (>60 ml/min) > 60 BUN/Creatinine Ratio (7 - 25 %) 15.6 Glucose (65 - 99 mg/dL) 114 H Calcium (8.4 - 10.2 mg/dL) 8.8 Magnesium (1.6 - 2.3 mg/dL) 1.9 Total Bilirubin (0.2 - 1.3 mg/dL) 0.8 Direct Bilirubin (< 0.4 mg/dL) 0.3 AST (17 - 59 U/L) 19 ALT (21 - 72 U/L) 37 Alkaline Phosphatase (< 127 U/L) 68 Troponin I (<0.11 ng/ml) < 0.01 0.02 0.02 Xpe-V-Obmsyhhmiov Pept (<125 pg/mL) 442 H Total Protein (6.3 - 8.2 g/dL) 5.8 L Albumin (3.5 - 5.0 g/dL) 3.6 Amylase (30 - 110 U/L) 41 Lipase (23 - 300 U/L) 72 Prolactin (3.7 - 17.9 ng/mL) 12.8 Coagulation PT (9.4 - 12.5 SEC) 11.5 INR (0.90 - 1.17) 1.10 APTT (25 - 37 SEC) 30 D-Dimer High Sensitivty (0 - 243 ng/ml) < 200 Hematology CBC w Diff NO MAN DIFF REQ WBC (4.8 - 10.8 /CUMM) 7.9 RBC (4.70 - 6.10 /CUMM) 5.88 Hgb (14.0 - 18.0 G/DL) 17.9 Hct (42 - 52 %) 52.9 H MCV (80.0 - 94.0 FL) 89.9 MCH (27.0 - 31.0 PG) 30.4 RDW (11.5 - 14.5 %) 13.1 Plt Count (130 - 400 /CUMM) 186 MPV (7.4 - 10.4 FL) 7.9 Gran % (42.2 - 75.2 %) 73.1 Lymphocytes % (20.5 - 51.1 %) 18.4 L Monocytes % (1.7 - 9.3 %) 6.5 Eosinophils % (0 - 5 %) 1.6 Basophils % (0.0 - 2.0 %) 0.4 Absolute Granulocytes (1.4 - 6.5 /CUMM) 5.8 Absolute Lymphocytes (1.2 - 3.4 /CUMM) 1.5 Absolute Monocytes (0.10 - 0.60 /CUMM) 0.5 Absolute Eosinophils (0.0 - 0.7 /CUMM) 0.1 Absolute Basophils (0.0 - 0.2 /CUMM) 0 PUBS MCHC (33.0 - 37.0 G/DL) 33.8 Imaging/Other Studies: PATIENT: TY TAPIA JR PRESENT AGE: 57 PATIENT ACCOUNT NO: [id number] : 56 LOCATION: [facility] ORDERING PHYSICIAN: Ramsye Vasquez MD SERVICE DATE: 09/02/174 EXAM TYPE: CAT - CT CERV SPINE WO IV CONTRAST; CT HEAD WO IV CONTRAST; CT MAXILLOFACIAL W/O CON EXAMINATION: NONCONTRAST HEAD CT NONCONTRAST MAXILLOFACIAL CT NONCONTRAST CERVICAL SPINE CT INDICATION INFORMATION: Head injury. Fall. Seizure. COMPARISON: None TECHNIQUE: Separate noncontrast CT examinations of the head, maxillofacial bones, and cervical spine were performed. Coronal and sagittal images were created for each examination at the technologist workstation. DLP: 1924 mGy-cm FINDINGS: Head: No evidence of acute intracranial hemorrhage. No extra-axial fluid collections are seen. Jimenez-white differentiation is maintained without evidence of acute territorial infarction. Ventricles are of normal size without evidence of hydrocephalus. No mass effect or midline shift. Mild periventricular and deep white matter hypoattenuation is consistent with small vessel ischemic change. The mastoid air cells are well aerated. No acute calvarial fractures are seen. Maxillofacial: No acute maxillofacial fractures are seen. The pterygoid plates are intact. The lamina papyracea are intact. The zygomatic arches are intact. The orbital rims are intact. Minimal opacification of the left maxillary sinus. The remaining paranasal sinuses are well aerated. The uncinate process is normal bilaterally. The infundibula and middle meati are patent. The nasal septum is mildly deviated to the left. The mandibular heads are well-seated in the condylar fossa. The orbits demonstrate a normal appearance bilaterally. The globes are intact, and there are no suspicious findings to suggest retrobulbar hemorrhage. Cervical spine: There is anterior cervical fusion hardware at C5-C6 with bony fusion of the vertebral bodies. There is anatomic alignment of the vertebral bodies and posterior elements. Vertebral body heights are maintained. There is disc space narrowing throughout the cervical spine with endplate osteophyte formation and facet arthropathy. The atlantoaxial and atlantooccipital articulations are intact. No evidence of acute fracture. No prevertebral soft tissue swelling. Groundglass opacities at the lung apices noted. The thyroid gland is unremarkable. IMPRESSION: 1. No acute intracranial findings. 2. No acute fracture or malalignment involving the cervical spine or maxillofacial bones. Degenerative changes of the spine. DICTATED BY: Ascencion Montes MD DATE/TIME DICTATED:09/02/17236 LEDGER POSTER:CYNDI DATE/TIME TRANSCRIBED:09/02/17236 CONFIDENTIAL, DO NOT COPY WITHOUT APPROPRIATE AUTHORIZATION. <Electronically signed in Other Vendor System> SIGNED BY: Kimbre Montes MDed 09/02 0245 Assessment/Plan Assessment: Syncope due to hypotension Recommendations: Ongoing cardiology management Monitor orthostatic vital signs No further neurodiagnostic testing needed at this time Consult Acknowledgment - Thank you for your consult request.
--- NOTE | 2017-09-03 07:31 | PN-Observation ---
Observation Note Observation Note _ I have personally examined TY TAPIA JR. him disposition is uncertain at this time. Before a determination can be made, he requires continued observation for the following reasons [chest pressure]. Assessment/Plan Assessment: This is a very pleasant 57-year-old gentleman with an extensive cardiac past medical history of 2 MIs (first one 8 years ago), status post LAD bare metal stent placement and CABG (last one in May 2016), Ischemic cardiomyopathy withh depresed EF s/p AICD placement, provoked pe 5yrs ago, presents with complaint of chest tightness, placed in telemetry for observation. Assessment and plan 1. Chest pain syndrome Patient came with chest pain which was relieved with nitroglycerin. Since admission troponin and EKG aren't negative. Patient was seen by public health social worker Dr. Acevedo who recommended echocardiogram and AICD interrogation was arranged with Dr. Bailey. He advised to continue all his medication including Lantus 2. 2. Syncope Secondary due to nitroglycerin. Patient was seen by neurologists who thinks the syncope secondary to hypotension. Code-full code Diet-heart healthy diet Plan-for discharge today after echocardiogram. Problem List: 1. Chest pain DVT/Prophylaxis: mechanical, pharmacological Discharge Plan Discharge Disposition: home If Discharged Today/In 24 Hrs: CMR done Subjective Review of Systems Constitutional: Reports: no symptoms. Objective Last 24 Hrs of Vital Signs/I&O Vital Signs Result Date Time B/P 110/66 09/03 0855 Pulse 67 09/03 0855 O2 Delivery Room Air 09/03 0800 Pulse Ox 95 09/03 0622 Temp 98.3 09/03 0622 Resp 20 09/03 0622 O2 Flow Rate 2.0L 09/02 0630 Intake & Output 09/04 0000 09/03 1600 09/03 0800 Intake Total 360 Output Total Balance 360 Intake, Oral 360 Physical Exam General Appearance: Alert, Oriented X3, Cooperative, No Acute Distress Cardiovascular: Regular Rate, Normal S1, Normal S2 Lungs: Clear to Auscultation Abdomen: Normal Bowel Sounds, Soft, No Tenderness, No Hepatospenomegaly Neurological: Normal Speech, Strength at 5/5 X4 Ext, Normal Tone Current Medications: Current Medications Sig/Andrew Start time Last Medication Dose Route Stop Time Status Admin Aspirin Buffered 81 MG DAILY 09/02 1000 DCD 09/03 PO 0855 Atorvastatin Calcium 80 MG 1700 09/02 1700 DCD PO Carvedilol 6.25 MG BID 09/02 1000 DCD 09/03 PO 0855 Enoxaparin Sodium 40 MG DAILY 09/02 1000 DCD 09/03 SC 0855 Patient Medication 1 ED ONE ONE 09/03 1115 DC Teaching ED 09/03 1116 Sacubitril/Valsartan 1 TAB BID 09/02 1100 DCD 09/03 PO 0855 Ticagrelor 90 MG BID 09/02 1000 DCD 09/03 PO 0855
--- NOTE | 2017-09-03 07:47 | PN- Cardiology ---
Objective Vital Signs and I&Os Vital Signs Date Time Temp Pulse Resp B/P B/P Pulse O2 O2 Flow FiO2 Mean Ox Delivery Rate 09/03 0622 98.3 66 20 88/64 95 Room Air 09/02 2215 98.4 85 20 82/58 94 Room Air 09/02 2040 81 84/60 09/02 1429 98.0 64 20 90/60 94 Room Air 09/02 0917 68 98/58 Intake & Output 09/03 0800 09/03 0000 09/02 1600 09/02 0800 09/02 0000 09/01 1600 Intake Total 360 328 463 2533 Output Total 400 Balance 360 212 917 2339 Intake, IV 20 2000 Intake, Oral 360 360 500 Number 1 Bowel Movements Output, Urine 400 Patient 180 lb Weight Weight Reported by Patient Measurement Method Current Medications: Current Medications Sig/Andrew Start time Last Medication Dose Route Stop Time Status Admin Aspirin Buffered 81 MG DAILY 09/02 1000 AC 09/02 PO 0916 Atorvastatin Calcium 80 MG 1700 09/02 1700 AC PO Carvedilol 6.25 MG BID 09/02 1000 AC 09/02 PO 0917 Enoxaparin Sodium 40 MG DAILY 09/02 1000 AC 09/02 SC 1329 Sacubitril/Valsartan 1 TAB BID 09/02 1100 AC 09/02 PO 2022 Ticagrelor 90 MG BID 09/02 1000 AC 09/02 PO 2022 Results Last 48 Hrs of Labs/Mics: Laboratory Tests 09/02/17 1244: Troponin I < 0.01 09/02/17 0604: Troponin I 0.02 09/02/17 0103: Anion Gap 12, Estimated GFR > 60, BUN/Creatinine Ratio 15.6, Glucose 114 H, Calcium 8.8, Magnesium 1.9, Total Bilirubin 0.8, Direct Bilirubin 0.3, AST 19, ALT 37, Alkaline Phosphatase 68, Troponin I 0.02, Onx-A-Yetwxbmolit Pept 442 H, Total Protein 5.8 L, Albumin 3.6, Amylase 41, Lipase 72, Prolactin 12.8, PT 11.5, INR 1.10, APTT 30, D-Dimer High Sensitivty < 200, CBC w Diff NO MAN DIFF REQ, RBC 5.88, MCV 89.9, MCH 30.4, RDW 13.1, MPV 7.9, Gran % 73.1, Lymphocytes % 18.4 L, Monocytes % 6.5, Eosinophils % 1.6, Basophils % 0.4, Absolute Granulocytes 5.8, Absolute Lymphocytes 1.5, Absolute Monocytes 0.5, Absolute Eosinophils 0.1, Absolute Basophils 0, PUBS MCHC 33.8
[2017-09-03 08:52] VITALS: BP 110/66
[2017-09-03 08:55] VITALS: BP 110/66
--- NOTE | 2017-09-03 11:55 | Patient Discharge Instructions ---
Discharge Instructions General Discharge Information You were seen/treated for: Chest pain Watch for these problems: In case of chest pain, chest pressure, shortness of breath, dizziness, nausea, vomiting please go to the nearest ER Special Instructions: Please follow-up with your primary care provider within 1-2 weeks of discharge and let them know about your recent admission at [facility] Please follow-up with your choral teacher within 1-2 weeks of discharge and let them know about your recent visit at [facility]. Please follow-up with the neurologist Dr. Alarcon within 1-2 weeks of discharge. Diet Continue normal diet: No Recommended Diet: Heart Healthy Activity Full Activity/No Limits: No Activity Self Limited: Yes Acute Coronary Syndrome Inclusion Criteria At DC or during hospital stay patient has or had the following: ACS DIAGNOSIS No Discharge Core Measures Meds if any: Prescribed or Continued at Discharge Meds if any: NOT Prescribed or Continued at Discharge Congestive Heart Failure Inclusion Criteria At DC or during hospital stay patient has or had the following: CHF DIAGNOSIS No Discharge Core Measures Meds if any: Prescribed or Continued at Discharge Meds if any: NOT Prescribed or Continued at Discharge Cerebrovascular accident Inclusion Criteria At DC or during hospital stay patient has or had the following: CVA/TIA Diagnosis No Discharge Core Measures Meds if any: Prescribed or Continued at Discharge Meds if any: NOT Prescribed or Continued at Discharge Venous thromboembolism Inclusion Criteria VTE Diagnosis No VTE Type NONE VTE Confirmed by (Test) NONE Discharge Core Measures - Per Current guidelines, there needs to be overlap - treatment for the first 5 days of Warfarin therapy. - If discharged on Warfarin prior to 5 days of - overlap therapy, the patient will need to be - assessed for post discharge needs including - *Post discharge parental anticoagulation - *Warfarin and/or parental anticoagulation education - *Follow up date to check INR post discharge At least 5 days overlap therapy as Inpatient No Meds if any: Prescribed or Continued at Discharge Note: Overlap Therapy is Warfarin and Anticoagulant Meds if any: NOT Prescribed or Continued at Discharge
--- NOTE | 2017-09-03 13:14 | PN- Att Addend ---
Attending Addendum Attending Brief Note Patient looking and feeling better today with no chest pain or shortness of breath. The small laceration on his nose is covered Vital signs are stable no fever. No new changes on physical patient had his echocardiogram and his cardiac device interrogated. Patient will be seen by Dr. Acevedo and after that will be discharged home to follow as an outpatient. 24 TOTALS 09/03 0000 09/02 0000 Intake Total 2880 Output Total 400 Balance 2480 Intake, IV 2020 Intake, Oral 860 Number 1 Bowel Movements Output, Urine 400 Patient 180 lb Weight Weight Reported by Patient Measurement Method Current Medications Sig/Andrew Start time Last Medication Dose Route Stop Time Status Admin Aspirin Buffered 81 MG DAILY 09/02 1000 AC 09/03 PO 0855 Atorvastatin Calcium 80 MG 1700 09/02 1700 AC PO Carvedilol 6.25 MG BID 09/02 1000 AC 09/03 PO 0855 Enoxaparin Sodium 40 MG DAILY 09/02 1000 AC 09/03 SC 0855 Patient Medication 1 ED ONE ONE 09/03 1115 DC Teaching ED 09/03 1116 Sacubitril/Valsartan 1 TAB BID 09/02 1100 AC 09/03 PO 0855 Ticagrelor 90 MG BID 09/02 1000 AC 09/03 PO 0855 Laboratory Tests 09/02/17 1244: Troponin I < 0.01 09/02/17 0604: Troponin I 0.02 09/02/17 0103: Anion Gap 12, Estimated GFR > 60, BUN/Creatinine Ratio 15.6, Glucose 114 H, Calcium 8.8, Magnesium 1.9, Total Bilirubin 0.8, Direct Bilirubin 0.3, AST 19, ALT 37, Alkaline Phosphatase 68, Troponin I 0.02, Nyn-U-Mugiiilofhq Pept 442 H, Total Protein 5.8 L, Albumin 3.6, Amylase 41, Lipase 72, Prolactin 12.8, PT 11.5, INR 1.10, APTT 30, D-Dimer High Sensitivty < 200, CBC w Diff NO MAN DIFF REQ, RBC 5.88, MCV 89.9, MCH 30.4, RDW 13.1, MPV 7.9, Gran % 73.1, Lymphocytes % 18.4 L, Monocytes % 6.5, Eosinophils % 1.6, Basophils % 0.4, Absolute Granulocytes 5.8, Absolute Lymphocytes 1.5, Absolute Monocytes 0.5, Absolute Eosinophils 0.1, Absolute Basophils 0, PUBS MCHC 33.8 Vital Signs Date Time Temp Pulse Resp B/P B/P Pulse O2 O2 Flow FiO2 Mean Ox Delivery Rate 09/03 0855 67 110/66 09/03 0852 67 110/66 09/03 0800 Room Air 09/03 0622 98.3 66 20 88/64 95 Room Air 09/02 2215 98.4 85 20 82/58 94 Room Air 09/02 2040 81 84/60 09/02 1429 98.0 64 20 90/60 94 Room Air
--- NOTE | 2017-09-04 07:38 | ECHOCARDIOGRAM REPORT ---
TY TAPIA Age: 57 : 1960 Gender: M Exam Date: 09/02/2017 14:53 Exam Location: [address] Ht (in): 65 Wt (lb): 220 BSA: 2.18 BP: 96 / 88 Ordering Physician: Antonia Redman MD Referring Physician: Miya Acevedo MD Technologist: Madhavi Alvarenga [facility] Room Number: [id number] Indications: CHEST PAIN Rhythm: Sinus Technical Quality: Fair, Technically difficult study FINDINGS Left Ventricle Moderate left ventricular dilatation. Left ventricular wall thickness increased. Moderately abnormal left ventricular ejection fraction estimated at 20-25%. Severely reduced global left ventricular systolic function. Right Ventricle Right ventricular dilatation. Right Atrium Right atrial dilatation. Left Atrium Moderate left atrial dilatation. Mitral Valve Mitral valve thickened. Mild mitral regurgitation. Aortic Valve Trileaflet aortic valve. Diffuse thickening (sclerosis) of the aortic valve cusps without reduced excursion. No aortic stenosis. Mild aortic regurgitation. Tricuspid Valve Tricuspid valve not well visualized, grossly normal. Trace tricuspid regurgitation. Pulmonic Valve Structurally normal pulmonic valve. Mild pulmonic regurgitation. Pericardium No pericardial effusion. Great Vessels Aortic root and proximal ascending aorta not well visualized, grossly normal. CONCLUSIONS 1. This was a technically difficult and somewhat limited study due to the patient's body habitus. 2. Aortic sclerosis is present with mild aortic insufficiency 3. Mitral leaflet thickening is present with mild mitral insufficiency and moderate left atrial enlargement. There is no valvular prolapse 4. No significant pericardial fluid was detected on the study. 5. Left ventricular chamber is moderately dilated with eccentric hypertrophy and significant global hypokinesia which is worse in the anteroseptal, anterolateral, anteroapical segments. Ejection fraction is approximately 20-25%. 6. The right heart structures were not optimally assessed. Mild pulmonic insufficiency is present with minimal tricuspid insufficiency. The right ventricular systolic pressure was not accurately assessed. 7. No recent study was available for comparison. Miya Acevedo M.D. (Electronically Signed) Final Date: 04 September 2017 07:37 MEASUREMENTS (Male / Female) Normal Values 2D ECHO LV Diastolic Diameter PLAX 7.0 cm 4.2 - 5.9 / 3.9 - 5.3 cm LV Systolic Diameter PLAX 6.2 cm 2.1 - 4.0 cm LV Fractional Shortening PLAX 11.4 % 25 - 46 % LV Ejection Fraction 2D Teich 24.1 % IVS Diastolic Thickness 1.0 cm LVPW Diastolic Thickness 1.1 cm LV Relative Wall Thickness 0.3 RV Internal Dim ED PLAX 3.6 cm 1.9 - 3.8 cm LVOT Diameter 2.1 cm Aortic Root Diameter 3.0 cm LA Systolic Diameter LX 4.5 cm 3.0 - 4.0 / 2.7 - 3.8 cm LV Ejection Fraction MOD BP 24.1 % >= 55 % LV Diastolic Length 4C 8.6 cm 6.9 - 10.3 cm LV Diastolic Area 4C 35.5 cm LV Diastolic Volume MOD 4C 119.0 cm LV Ejection Fraction MOD 4C 21.0 % LV Stroke Volume MOD 4C 25.0 cm LV Systolic Length 4C 8.3 cm LV Systolic Area 4C 31.4 cm LV Systolic Volume MOD 4C 94.0 cm LV Ejection Fraction MOD 2C 27.2 % LV Diastolic Volume 4C AL 124.1 cm 85 - 139 / 69 - 109 cm LV Systolic Volume 4C AL 101.0 cm LV Ejection Fraction 4C AL 18.7 % LV Stroke Volume 4C AL 23.2 cm LV Ejection Fraction 2C AL 25.9 % LA Volume 54.0 cm 18 - 58 / 22 - 52 cm Ascending Aorta Diameter 2.8 cm DOPPLER AV Peak Velocity 133.0 cm/s AV Peak Gradient 7.1 mmHg AV Mean Velocity 101.0 cm/s AV Mean Gradient 5.0 mmHg AV Velocity Time Integral 28.2 cm LVOT Peak Velocity 118.0 cm/s LVOT Peak Gradient 5.6 mmHg LVOT Mean Velocity 84.5 cm/s LVOT Mean Gradient 3.0 mmHg LVOT Velocity Time Integral 21.6 cm LVOT Stroke Volume 74.8 cm AV Area Cont Eq vti 2.7 cm AV Area Cont Eq pk 3.1 cm MV Peak Velocity 85.8 cm/s MV Peak Gradient 2.9 mmHg MV Mean Velocity 45.7 cm/s MV Mean Gradient 1.0 mmHg Mitral E Point Velocity 52.8 cm/s Mitral A Point Velocity 59.7 cm/s Mitral E to A Ratio 0.9 MV PHT Velocity 83.0 cm/s MV Deceleration Bay 481.0 cm/s MV Pressure Half Time 51.8 ms MV Area PHT 4.2 cm MV Deceleration Time 238.0 ms TR Peak Velocity 112.0 cm/s TR Peak Gradient 5.0 mmHg Right Atrial Pressure 10.0 mmHg Pulmonary Artery Systolic Pressu 15.0 mmHg Right Ventricular Systolic Press 15.0 mmHg PV Peak Velocity 119.0 cm/s PV Peak Gradient 5.7 mmHg PV Mean Velocity 69.8 cm/s PV Mean Gradient 2.0 mmHg PV Velocity Time Integral 20.9 cm LV E' Lateral Velocity 9.9 cm/s Mitral E to LV E' Lateral Ratio 5.3 LV E' Septal Velocity 4.9 cm/s Mitral E to LV E' Septal Ratio 10.8
== END 2017-09-03 14:22 ==
LOC: ERH 00:26 → 1NO 04:09 → ERHI 04:09 → ENRESERV 04:52 → 1NO 06:32
PROVIDERS: Pediatrics
DX: R07.89 Other chest pain (principal); I25.10 Atherosclerotic heart disease of native coronary artery without angina pectoris; Z95.5 Presence of coronary angioplasty implant and graft; Z95.1 Presence of aortocoronary bypass graft; I25.5 Ischemic cardiomyopathy; Z95.810 Presence of automatic (implantable) cardiac defibrillator; F32.9 Major depressive disorder, single episode, unspecified; Z79.82 Long term (current) use of aspirin; I95.9 Hypotension, unspecified; I50.9 Heart failure, unspecified; E78.5 Hyperlipidemia, unspecified; I25.2 Old myocardial infarction; Z86.711 Personal history of pulmonary embolism
CPT/HCPCS: 71045; 93005; 93010; 93306; 96360; 96361; 96372; 96374; 99291; G0378; J1650; J3490